=== PATIENT | female | born 1975 | race Caucasian/White ===

== ENCOUNTER 2022-03-29 22:38 | Emergency (ER) | payer OTHER ==
[2022-03-29] MEDS ORDERED: Sodium Chloride 0.9% 1,000 ML IV ONE (23:20)
[2022-03-29] MEDS ORDERED: Albuterol/Ipratropium 3.0-0.5 MG/3 ML Neb Soln NEB ONE (23:20)
[2022-03-29] MEDS ORDERED: methylPREDNISolone Sodium Succinate 125 MG/2 ML SDV IVPUSH ONE (23:20)
[2022-03-29] MEDS ORDERED: Sodium Chloride 0.9% 2.5 ML Syringe FLUSH PRN (23:20)
[2022-03-29] MEDS ORDERED: Sodium Chloride 0.9% 10 ML Syringe FLUSH PRN (23:20)
[2022-03-29] MEDS ORDERED: Ondansetron 4 MG/2 ML SDV IVPUSH ONE (23:20)
[2022-03-29] MEDS ORDERED: fentaNYL 50 MCG/ML SDV IVPUSH ONE (23:20)
[2022-03-29 23:40] LABS: BLOOD UREA NITROGEN,BUN 4 mg/dL (7.0-18.0); CARBON DIOXIDE,CO2 20.4 mmol/L (21.0-32.0); CHLORIDE,CL 101 mmol/L (98-107); GLUCOSE RANDOM 151 mg/dL (74-106); LIPASE 27 U/L (73-393); POTASSIUM,K 3.2 mmol/L (3.5-5.1); SODIUM,NA 133 mmol/L (136-145)
[2022-03-29 23:45] LABS: ESTIMATED GFR > 60.0 ml/min
[2022-03-30] MEDS ORDERED: Magnesium Sulfate (4.06 MEQ/ML) 5 GM/10 ML SDV IV STA (00:42)
[2022-03-30] MEDS ORDERED: Magnesium Sulfate/Water 50 ML IV ONE (00:45)
[2022-03-30] MEDS ORDERED: Iopamidol 755 MG/ML 500 ML Multipack Bottle IVPUSH STA (01:23)
[2022-03-30] MEDS ORDERED: Albuterol/Ipratropium 3.0-0.5 MG/3 ML Neb Soln NEB ONE (02:17)
[2022-03-30] MEDS ORDERED: Furosemide 40 MG/4 ML VIAL IVPUSH ONE (02:19)
[2022-03-30] MEDS ORDERED: Piperacillin/Tazobactam 3.375 GM in Sodium Chloride 0.9% 50 ML IV ONE (02:57)
[2022-03-30] MEDS ORDERED: VANCOmycin 1.5 GM/300 ML 1.5 GM in Premix Bag 1 BAG IV SCH (03:30)
[2022-03-30] MEDS ORDERED: Azithromycin 500 MG in Sodium Chloride 0.9% 250 ML IV ONE (03:43)
[2022-03-30] MEDS ORDERED: Nicotine 21 MG/24 Hr Patch TRDERM ONE (04:06)
== END 2022-03-30 05:10 ==
LOC: MW.ED 22:38
DX: J96.91 Respiratory failure, unspecified with hypoxia (principal); L02.211 Cutaneous abscess of abdominal wall; Z79.899 Other long term (current) drug therapy; Z20.822 Contact with and (suspected) exposure to COVID-19
CPT/HCPCS: 36415; 71275; 74177; 80053; 80307; 81001; 83605; 83690; 83735; 83880; 84484; 85025; 85379; 85610; 87040; 87635; 93005; 96365; 96367; 96368; 96375; 99285; A9270; J0456; J1940; J2405; J2543; J2930; J3010; J3370; J3475; J3490; J7030; J7050; Q9967; J7620-GY; U0002

== ENCOUNTER 2022-06-21 11:59 | Emergency (ER) | payer OTHER ==
[2022-06-21] MEDS ORDERED: Lidocaine 1% with EPINEPHrine 1:100,000 10 ML MDV INJECT ONE (12:07)
[2022-06-21] MEDS ORDERED: Lidocaine 1% with EPINEPHrine 1:100,000 50 ML MDV ONE (12:31)
== END 2022-06-21 12:44 | disposition home or self-care (01) ==
LOC: MW.ED 11:59
DX: S30.851A Superficial foreign body of abdominal wall, initial encounter (principal); J44.9 Chronic obstructive pulmonary disease, unspecified; I50.9 Heart failure, unspecified; Z79.899 Other long term (current) drug therapy; Z88.2 Allergy status to sulfonamides; W22.8XXA Striking against or struck by other objects, initial encounter
CPT/HCPCS: 99283

== ENCOUNTER 2022-08-09 19:04 | Emergency (ER) | payer OTHER ==
[2022-08-09] MEDS ORDERED: Sodium Chloride 0.9% 10 ML Syringe FLUSH PRN (19:56)
[2022-08-09] MEDS ORDERED: Sodium Chloride 0.9% 2.5 ML Syringe FLUSH PRN (19:56)
[2022-08-09] MEDS ORDERED: methylPREDNISolone Sodium Succinate 125 MG/2 ML SDV IVPUSH ONE (20:17)
[2022-08-09] MEDS ORDERED: cefTRIAXone 1 GM in Sodium Chloride 0.9% 50 ML IV ONE (21:41)
[2022-08-09 22:03] LABS: CORONAVIRUS COVID-19 NAA NEGATIVE (NEGATIVE); INFLUENZA A NAA NEGATIVE (NEGATIVE); INFLUENZA B NAA NEGATIVE (NEGATIVE)
[2022-08-09 22:03] LABS: CARBON DIOXIDE,CO2 27.5 mmol/L (21.0-32.0); POTASSIUM,K 2.8 mmol/L (3.5-5.1)
[2022-08-09] MEDS ORDERED: Iopamidol 755 MG/ML 500 ML Multipack Bottle IVPUSH ONE (22:39)
[2022-08-10] MEDS ORDERED: Sodium Chloride 0.9% 1,000 ML IV ONE (00:10)
[2022-08-10] MEDS ORDERED: Iopamidol 755 MG/ML 500 ML Multipack Bottle IVPUSH ONE (02:47)
[2022-08-10] MEDS ORDERED: Diatrizoate Meglumine/Diatrizoate Sodium 37% 30 ML Bottle PO ONE ×2 (02:47→02:56)
[2022-08-10] MEDS ORDERED: Ondansetron 4 MG/2 ML SDV IVPUSH ONE (02:59)
[2022-08-10] MEDS ORDERED: Pantoprazole 80 MG in Sodium Chloride 0.9% 10 ML IVPUSH ONE (02:59)
[2022-08-10] MEDS ORDERED: LORazepam 2 MG/ML SDV IVPUSH ONE (03:02)
[2022-08-10] MEDS ORDERED: Albuterol/Ipratropium 3.0-0.5 MG/3 ML Neb Soln NEB ONE (03:46)
[2022-08-10] MEDS ORDERED: Albuterol/Ipratropium 3.0-0.5 MG/3 ML Neb Soln ONE ×2 (08:11→08:32)
[2022-08-10] MEDS ORDERED: Albuterol/Ipratropium 3.0-0.5 MG/3 ML Neb Soln NEB STA ×2 (08:13→08:34)
[2022-08-10] MEDS ORDERED: Famotidine 20 MG/2 ML SDV IVPUSH ONE (08:39)
[2022-08-10] MEDS ORDERED: LORazepam 2 MG/ML SDV IVPUSH STA (08:39)
== END 2022-08-10 09:09 ==
LOC: MW.ED 19:04
DX: K26.1 Acute duodenal ulcer with perforation (principal); L02.211 Cutaneous abscess of abdominal wall; J44.9 Chronic obstructive pulmonary disease, unspecified; Z88.2 Allergy status to sulfonamides; Z79.899 Other long term (current) drug therapy; Z20.822 Contact with and (suspected) exposure to COVID-19
CPT/HCPCS: 0240U; 36415; 71045; 71260; 74177; 80053; 82803; 83605; 83690; 83880; 85025; 87040; 93005; 96361; 96374; 96375; 96376; 99285; C9113; J0696; J2060; J2405; J2930; J3490; J7030; Q9963; Q9967; J7620-GY